=== PATIENT | male | born 1970 | race Caucasian/White ===

== ENCOUNTER → 2024-04-04 | Outpatient (CLI) | payer OTHER, SELFPAY ==
[2024-04-04 08:43] LABS: Prostate Specific Antigen 3.42 ng/mL (0-4.00)
== END | disposition home or self-care (01) ==
PROVIDERS: PCP Family Medicine; Referring Provider Physician Assistant; Visit Provider Physician Assistant
DX: R35.1 Nocturia (principal)
CPT/HCPCS: 36415; 84153